=== PATIENT | female | born 1970 | race Caucasian/White ===

== ENCOUNTER 2017-03-12 02:22 | Emergency (ER) | payer OTHER ==
[2017-03-12 02:30] VITALS: BP 166/93; PULSE 86; RESP 16; TEMP 98.7
[2017-03-12] MEDS ORDERED: LIDOCAINE VISCOUS 2% 15 ML CUP MUCOUS MEM STA (02:44)
--- NOTE | 2017-03-12 02:44 | ED ---
ENT HPI - General Chief complaint: ENT Stated complaint: ENT*4 days Time Seen by Provider: 03/12/17 02:34 Source: patient Mode of arrival: ambulatory Limitations: no limitations - History of Present Illness Initial comments: this patient is a 46-year-old woman who presents to be evaluated for sore throat , ear pain, and no cough. The patient states that her sore throat had started on Wednesday. She then also was having what felt like some fullness or pressure in both ears. She states that on Wednesday she started having cough. She also at times has felt warm but has not documented fever. Patient states that the sore throat is moderate but becomes severe now she tries to swallow. No difficulty with speech. MD complaint: sore throat, ear pain Onset/Timin -: days(s) Location: throat Severity: moderate Quality: aching Consistency: constant Improves with: none Worsens with: swallowing, other (cough) Associated Symptoms: cough, sore throat - Related Data Home Medications Medication Instructions Recorded Confirmed Medroxyprogesterone Acetate 150 mg IM Q90D 01/14/16 01/14/16 [Depo-Provera] Previous Rx's Medication Instructions Recorded Lidocaine Viscous [Xylocaine 5 ml PO Q3HR PRN #100 ml 03/12/17 Viscous 2%] Allergies Allergy/AdvReac Type Severity Reaction Status Date / Time promethazine HCl AdvReac twitching Verified 01/14/16 11:41 [From Phenergan] tramadol AdvReac Itching Verified 01/14/16 11:41 Review of Systems ROS Statement: Those systems with pertinent positive or pertinent negative responses have been documented in the HPI. ROS Other: All systems not noted in ROS Statement are negative. Constitutional: Reports: fever (subjective). Denies: chills Eyes: Denies: eye pain, eye discharge ENT: Reports: as per HPI, ear pain, throat pain, congestion Respiratory: Reports: cough. Denies: dyspnea, wheezes, stridor Cardiovascular: Denies: chest pain, palpitations Gastrointestinal: Denies: abdominal pain Musculoskeletal: Denies: arthralgia Skin: Denies: rash Neurological: Denies: headache Past Medical History Past Medical History: No Reported History Additional Past Medical History / Comment(s): hx. leaky valve, CT scan showed colitis, PALPITATIONS History of Any Multi-Drug Resistant Organisms: None Reported Past Surgical History: Cholecystectomy, Tonsillectomy, Tubal Ligation, Uterine Ablation Additional Past Surgical History / Comment(s): ENDOMETRIAL ABLATION Past Anesthesia/Blood Transfusion Reactions: No Reported Reaction Past Psychological History: No Psychological Hx Reported Smoking Status: Never smoker Past Alcohol Use History: None Reported Past Drug Use History: None Reported - Past Family History Mother Family Medical History: No Reported History General Exam Limitations: no limitations General appearance: alert, in no apparent distress Head exam: Present: atraumatic, normocephalic Eye exam: Present: normal appearance. Absent: scleral icterus, conjunctival injection ENT exam: Present: mucous membranes moist, TM's normal bilaterally, normal external ear exam, other (injection of the pharynx.) Neck exam: Present: normal inspection, full ROM, lymphadenopathy (bilateral cervical nodes). Absent: tenderness, meningismus Respiratory exam: Present: normal lung sounds bilaterally, other (nonproductive cough during exam). Absent: respiratory distress, wheezes, rales, rhonchi, stridor Cardiovascular Exam: Present: regular rate, normal rhythm, normal heart sounds. Absent: systolic murmur, diastolic murmur, rubs, gallop GI/Abdominal exam: Present: soft. Absent: distended, tenderness, guarding, organomegaly Neurological exam: Present: alert Skin exam: Present: warm, dry, intact, normal color. Absent: rash Course Vital Signs 03/12/17 02:27 Temperature 98.7 F Pulse Rate 86 Respiratory 16 Rate Blood Pressure 166/93 O2 Sat by Pulse 98 Oximetry Medical Decision Making - Lab Data Lab Results 03/12/17 Range/Units 02:46 Group A Strep Rapid Negative (Negative) Disposition Clinical Impression: Acute viral pharyngitis, Upper respiratory infection Disposition: HOME SELF-CARE Condition: Good Instructions: Upper Respiratory Infection (ED) Prescriptions: Lidocaine Viscous [Xylocaine Viscous 2%] 5 ml PO Q3HR PRN #100 ml PRN Reason: Sore Throat Referrals: Valentina Romo MD [Primary Care Provider] - 1-2 days
== END 2017-03-12 03:20 | disposition home or self-care (01) ==
LOC: EC 02:22
DX: J02.9 Acute pharyngitis, unspecified (principal); Z90.89 Acquired absence of other organs; Z79.899 Other long term (current) drug therapy; Z88.6 Allergy status to analgesic agent; Z88.8 Allergy status to other drugs, medicaments and biological substances
CPT/HCPCS: 87081; 87430; 99283